=== PATIENT | male | born 1950 | race Caucasian/White ===

== ENCOUNTER 2016-07-12 12:54 | Inpatient (IN) | payer OTHER ==
--- NOTE | 2016-07-12 13:33 | EDM.PDOC ---
ED HISTORY OF PRESENT ILLNESS - General Chief Complaint: Respiratory Problem Stated Complaint: MEDICAL VIA TRI Time Seen by Provider: 07/12/16 13:33 Source: Reports: Patient History Limitations: Reports: No limitations - History of Present Illness INITIAL COMMENTS - FREE TEXT/NARRATIVE: pt developed marked tightness in chest. He is coughing some thick sputum. He does not have a fever. Timing/Duration: Reports: Hour(s):, Getting worse Severity: moderate Location, General: Reports: chest, other ( pt does not have ankle swelling. ) - Related Data Allergies/ADRs: Allergies Allergy/AdvReac Type Severity Reaction Status Date / Time No Known Allergies Allergy Verified 07/12/16 13:02 Home Meds: Home Meds Albuterol [Ventolin HFA] 2 puff INH ASDIRECTED PRN 07/12/16 [History] Cilostazol 50 mg PO DAILY 07/12/16 [History] Doxycycline Monohydrate 100 mg PO ASDIRECTED PRN 07/12/16 [History] Fenofibrate 1 tab PO DAILY 07/12/16 [History] Fluticasone/Salmeterol [Advair Diskus 500-50] 1 puff INH BID 07/12/16 [History] Ipratropium/Albuterol Sulfate [Iprat-Albut 0.5-3(2.5) mg/3 ml] 1 inh INH ASDIRECTED PRN 07/12/16 [History] Lisinopril 5 mg PO DAILY 07/12/16 [History] Metoprolol Succinate [Toprol XL 100mg] 100 mg PO DAILY 07/12/16 [History] Prednisone [IJD: Prednisone] 10 mg PO DAILY PRN 07/12/16 [History] atorvaSTATin [Lipitor] 1 tab PO DAILY 07/12/16 [History] Past Medical History Cardiovascular History: Reports: High cholesterol, Hypertension, Other (see below) Other Cardiovascular History: peripheral artery disease Respiratory History: Reports: COPD - Infectious Disease History Infectious Disease History: Reports: Measles Social & Family History - Tobacco Use Smoking Status *Q: Former Smoker Used Tobacco, but Quit: Yes Month Tobacco Last Used: 2014 - Caffeine Use Caffeine Use: Reports: Coffee - Alcohol Use Days Per Week of Alcohol Use: 3 Number of Drinks Per Day: 2 Total Drinks Per Week: 6 - Recreational Drug Use Recreational Drug Use: No ED ROS GENERAL - Review of Systems Review Of Systems: See Below Constitutional: Reports: no symptoms HEENT: Reports: No symptoms Respiratory: Reports: Shortness of Breath, Cough Cardiovascular: Reports: No symptoms Endocrine: Reports: no symptoms GI/Abdominal: Reports: No symptoms : Reports: no symptoms ED EXAM, GENERAL - Physical Exam Exam: See Below Free Text/Narrative:: pt arrived with marked sob he took 7 nebs last nite. He has progressively been more sob. He usually has some predisone he can use when he starts to get tight. He had ordered it but it was not available to him. Exam Limited By: No limitations General Appearance: alert, anxious, mild distress Ears: normal TMs Nose: normal inspection Throat/Mouth: Normal inspection Head: atraumatic Neck: normal inspection Respiratory/Chest: decreased breath sounds, wheezing Cardiovascular: regular rate, rhythm, tachycardia GI/Abdominal: soft, non tender Rectal (Males) Exam: Deferred Back Exam: normal inspection Extremities: other ( no edema. ) Neurological: alert, oriented, normal cognition Psychiatric: normal affect, anxious Course - Vital Signs Last Recorded V/S: Last Vital Signs Temp 36.1 C 07/12/16 13:05 Pulse 72 07/12/16 13:05 Resp 20 07/12/16 13:05 BP 157/78 H 07/12/16 13:05 Pulse Ox 88 L 07/12/16 13:05 - Orders/Labs/Meds Orders: Active Orders 24 hr Category Date Time Status RT Aerosol Therapy [RC] ASDIRECTED Care 07/12/16 13:42 Active Chest 1V Frontal [CR] Stat Exams 07/12/16 13:40 Taken UA W/MICROSCOPIC [URIN] Urgent Lab 07/12/16 12:57 Uncollected Labs: Laboratory Tests 07/12/16 07/12/16 07/12/16 Range/Units 13:05 13:09 13:09 WBC 7.2 (4.5-11.0) K/uL RBC 4.67 (4.30-5.90) M/uL Hgb 15.3 H (12.0-15.0) g/dL Hct 46.1 (40.0-54.0) % MCV 99 H (80-98) fL MCH 33 H (27-31) pg MCHC 33 (32-36) % Plt Count 128 L (150-400) K/uL Neut % (Auto) 54 (36-66) % Lymph % (Auto) 22 L (24-44) % [place] % (Auto) 14 H (2-6) % Eos % (Auto) 10 H (2-4) % Baso % (Auto) 1 (0-1) % Puncture Site ABG pH (7.350-7.450) ABG pCO2 (35.0-42.0) mmHg ABG pO2 (75.0-100.0) mmHg ABG HCO3 (22.0-26.0) mmol/L ABG Total CO2 (23.0-27.0) mmol/L ABG O2 Saturation (95.0-98.0) % ABG O2 Content (15.0-23.0) %vol ABG Base Excess mm/L ABG Hemoglobin (13.5-18.0) g/dL ABG Oxyhemoglobin % ABG Carboxyhemoglobin (0.0-1.6) % ABG Methemoglobin % Raffaele Test O2 Delivery Device Oxygen Flow Rate L Sodium (140-148) mmol/L Potassium (3.6-5.2) mmol/L Chloride (100-108) mmol/L Carbon Dioxide (21-32) mmol/L Anion Gap (5.0-14.0) mmol/L BUN (7-18) mg/dL Creatinine (0.8-1.3) mg/dL Est Cr Clr Drug Dosing mL/min Estimated GFR (MDRD) (>60) Glucose (74-106) mg/dL Calcium (8.5-10.1) mg/dL Total Bilirubin (0.2-1.0) mg/dL AST (15-37) U/L ALT (12-78) U/L Alkaline Phosphatase (46-116) U/L C-Reactive Protein 0.10 (0.0-0.3) mg/dL Qrr-Z-Jncnsycqehh Pept 263 H (5-125) pg/mL Total Protein (6.4-8.2) g/dL Albumin (3.4-5.0) g/dL Globulin (2.3-3.5) g/dL Albumin/Globulin Ratio (1.2-2.2) 07/12/16 07/12/16 Range/Units 13:09 13:52 WBC (4.5-11.0) K/uL RBC (4.30-5.90) M/uL Hgb (12.0-15.0) g/dL Hct (40.0-54.0) % MCV (80-98) fL MCH (27-31) pg MCHC (32-36) % Plt Count (150-400) K/uL Neut % (Auto) (36-66) % Lymph % (Auto) (24-44) % [place] % (Auto) (2-6) % Eos % (Auto) (2-4) % Baso % (Auto) (0-1) % Puncture Site Rt.radial ABG pH 7.350 (7.350-7.450) ABG pCO2 45.1 H (35.0-42.0) mmHg ABG pO2 138.0 H (75.0-100.0) mmHg ABG HCO3 24.3 (22.0-26.0) mmol/L ABG Total CO2 21.3 L (23.0-27.0) mmol/L ABG O2 Saturation 99.0 H (95.0-98.0) % ABG O2 Content 20.9 (15.0-23.0) %vol ABG Base Excess -1.1 mm/L ABG Hemoglobin 15.0 (13.5-18.0) g/dL ABG Oxyhemoglobin 97.7 % ABG Carboxyhemoglobin 0.8 (0.0-1.6) % ABG Methemoglobin 0.5 % Raffaele Test Passed O2 Delivery Device Nasal cannula Oxygen Flow Rate 2 L Sodium 139 L (140-148) mmol/L Potassium 4.2 (3.6-5.2) mmol/L Chloride 104 (100-108) mmol/L Carbon Dioxide 31 (21-32) mmol/L Anion Gap 8.2 (5.0-14.0) mmol/L BUN 11 (7-18) mg/dL Creatinine 0.9 (0.8-1.3) mg/dL Est Cr Clr Drug Dosing 80.22 mL/min Estimated GFR (MDRD) > 60 (>60) Glucose 93 (74-106) mg/dL Calcium 8.6 (8.5-10.1) mg/dL Total Bilirubin 0.9 (0.2-1.0) mg/dL AST 28 (15-37) U/L ALT 41 (12-78) U/L Alkaline Phosphatase 47 (46-116) U/L C-Reactive Protein (0.0-0.3) mg/dL Kuc-M-Bukjkorajbt Pept (5-125) pg/mL Total Protein 6.6 (6.4-8.2) g/dL Albumin 3.9 (3.4-5.0) g/dL Globulin 2.7 (2.3-3.5) g/dL Albumin/Globulin Ratio 1.4 (1.2-2.2) Meds: Medications Discontinued Medications Generic Name Dose Route Start Last Admin Trade Name Freq PRN Reason Stop Dose Admin Albuterol 2.5 mg 07/12/16 13:41 07/12/16 13:51 Proventil Neb Soln NEB 07/12/16 13:42 2.5 mg ONETIME ONE Administration - Re-Assessments/Exams Free Text/Narrative Re-Assessment/Exam: 07/12/16 14:44 chest xray reveals copd but no infiltrate. His bnp is not elevated, His wbc is normal. He was given a duol neb in the ambulance and got some relief. He was also given solumedrol 125 iv push. Departure - Departure Time of Disposition: 14:46 Disposition: Home, Self-Care 01 Condition: fair Clinical Impression: COPD exacerbation Forms: ED Department Discharge Care Plan Goals: admit to the hosp-- Dr chambers. - My Orders Last 24 Hours: My Active Orders 07/12/16 12:57 UA W/MICROSCOPIC [URIN] Urgent 07/12/16 13:40 Chest 1V Frontal [CR] Stat 07/12/16 13:42 RT Aerosol Therapy [RC] ASDIRECTED - Assessment/Plan Last 24 Hours: My Active Orders 07/12/16 12:57 UA W/MICROSCOPIC [URIN] Urgent 07/12/16 13:40 Chest 1V Frontal [CR] Stat 07/12/16 13:42 RT Aerosol Therapy [RC] ASDIRECTED
[2016-07-12] MEDS ORDERED: Albuterol 0.083% 2.5 MG/3 ML Neb Soln NEB ONE (13:41)
--- NOTE | 2016-07-12 15:19 | PCM.HP ---
H&P History of Present Illness - General Date of Service: 07/12/16 Admit Problem/Dx: Admission Diagnosis/Problem Admission Diagnosis/Problem Acute bronchitis Source of Information: Patient, Provider History Limitations: Reports: No limitations - History of Present Illness Initial Comments - Free Text/Narative: Lobo presents today with 2-3 days of progressive shortness of breath and wheezing. Cough is semi-frequent and occasionally productive of yellow sputum. He is now short of breath even at rest. He has been using his nebulizer machine approximately every 2 hours overnight rather than his usual every 4 hours. He is more winded with any activity and walking even 10 feet to the bathroom causes significant shortness of breath. He does not report any chest pain. He is not aware of any fevers or chills. Appetite and energy have both been decreased from baseline. No change in bowel or bladder function is reported. He has had similar episodes in the past, the most recent was about 2 and half months ago. He has not had steroids or antibiotics since that time. When the paramedics arrived for evaluation his oxygen saturations were in the low 80s. He received steroids and a nebulizer in the ambulance. Workup in the emergency room revealed hypoxia and wheezing. Labs and chest x- ray are essentially normal. He continues to require supplemental oxygen and will be admitted for management of bronchitis and a COPD exacerbation. - Related Data Allergies/Adverse Reactions: Allergies Allergy/AdvReac Type Severity Reaction Status Date / Time No Known Allergies Allergy Verified 07/12/16 13:02 Home Medications: Home Meds Albuterol [Ventolin HFA] 2 puff INH ASDIRECTED PRN 07/12/16 [History] Cilostazol 50 mg PO DAILY 07/12/16 [History] Doxycycline Monohydrate 100 mg PO ASDIRECTED PRN 07/12/16 [History] Fenofibrate 1 tab PO DAILY 07/12/16 [History] Fluticasone/Salmeterol [Advair Diskus 500-50] 1 puff INH BID 07/12/16 [History] Ipratropium/Albuterol Sulfate [Iprat-Albut 0.5-3(2.5) mg/3 ml] 1 inh INH ASDIRECTED PRN 07/12/16 [History] Lisinopril 5 mg PO DAILY 07/12/16 [History] Metoprolol Succinate [Toprol XL 100mg] 100 mg PO DAILY 07/12/16 [History] Prednisone [IJD: Prednisone] 10 mg PO DAILY PRN 07/12/16 [History] atorvaSTATin [Lipitor] 1 tab PO DAILY 07/12/16 [History] Past Medical History Cardiovascular History: Reports: High cholesterol, Hypertension, Other (see below) Other Cardiovascular History: peripheral artery disease Respiratory History: Reports: COPD - Infectious Disease History Infectious Disease History: Reports: Measles Social & Family History - Family History Respiratory: Reports: COPD - Tobacco Use Smoking Status *Q: Former Smoker Used Tobacco, but Quit: Yes Month Tobacco Last Used: 2014 - Caffeine Use Caffeine Use: Reports: Coffee - Alcohol Use Days Per Week of Alcohol Use: 3 Number of Drinks Per Day: 2 Total Drinks Per Week: 6 - Recreational Drug Use Recreational Drug Use: No H&P Review of Systems - Review of Systems: Review Of Systems: See Below Free Text/Narrative: A complete 12 point review of systems was obtained. Pertinent positives and negatives are noted in the history of present illness. All other systems were reviewed and were negative except as noted. Exam - Exam Exam: See Below - Vital Signs Vital Signs: Last Vital Signs Temp 36.1 C 07/12/16 13:05 Pulse 67 07/12/16 14:31 Resp 18 07/12/16 14:31 BP 148/77 H 07/12/16 14:31 Pulse Ox 93 L 07/12/16 14:31 Weight: 95.254 kg - Exam Quality Assessment: supplemental oxygen. No: urinary catheter General: alert, oriented, cooperative, mild distress HEENT: Conjunctiva clear, Mucosa moist & pink. No: Scleral icterus Neck: supple, trachea midline. No: lymphadenopathy Lungs: Normal respiratory effort, Wheezing (diffuse exp wheezing with moderate air flow impairment ). No: Rales Cardiovascular: regular rate, regular rhythm. No: tachycardia, systolic murmur Abdomen: normal bowel sounds, soft, other (obese). No: distention, tenderness Back Exam: normal inspection, full range of motion Extremities: normal inspection, normal pulses. No: edema Peripheral Pulses: 2+: dorsalis pedis (L), dorsalis pedis (R) Skin: warm, dry, intact Neuro Extensive - Mental Status: alert, oriented x3, nl response to commands Neuro Extensive - Motor, Sensory, Reflexes: CN II-XII intact. No: dysarthria, abnormal motor, tremor Psychiatric: alert, normal affect - Patient Data Lab Results last 24 hrs: Laboratory Results - last 24 hr 07/12/16 07/12/16 07/12/16 Range/Units 13:05 13:09 13:09 WBC 7.2 (4.5-11.0) K/uL RBC 4.67 (4.30-5.90) M/uL Hgb 15.3 H (12.0-15.0) g/dL Hct 46.1 (40.0-54.0) % MCV 99 H (80-98) fL MCH 33 H (27-31) pg MCHC 33 (32-36) % Plt Count 128 L (150-400) K/uL Neut % (Auto) 54 (36-66) % Lymph % (Auto) 22 L (24-44) % [place] % (Auto) 14 H (2-6) % Eos % (Auto) 10 H (2-4) % Baso % (Auto) 1 (0-1) % Puncture Site ABG pH (7.350-7.450) ABG pCO2 (35.0-42.0) mmHg ABG pO2 (75.0-100.0) mmHg ABG HCO3 (22.0-26.0) mmol/L ABG Total CO2 (23.0-27.0) mmol/L ABG O2 Saturation (95.0-98.0) % ABG O2 Content (15.0-23.0) %vol ABG Base Excess mm/L ABG Hemoglobin (13.5-18.0) g/dL ABG Oxyhemoglobin % ABG Carboxyhemoglobin (0.0-1.6) % ABG Methemoglobin % Raffaele Test O2 Delivery Device Oxygen Flow Rate L Sodium (140-148) mmol/L Potassium (3.6-5.2) mmol/L Chloride (100-108) mmol/L Carbon Dioxide (21-32) mmol/L Anion Gap (5.0-14.0) mmol/L BUN (7-18) mg/dL Creatinine (0.8-1.3) mg/dL Est Cr Clr Drug Dosing mL/min Estimated GFR (MDRD) (>60) Glucose (74-106) mg/dL Calcium (8.5-10.1) mg/dL Total Bilirubin (0.2-1.0) mg/dL AST (15-37) U/L ALT (12-78) U/L Alkaline Phosphatase (46-116) U/L C-Reactive Protein 0.10 (0.0-0.3) mg/dL [id number]-[id number]-Tpkxwhswvlz Pept 263 H (5-125) pg/mL Total Protein (6.4-8.2) g/dL Albumin (3.4-5.0) g/dL Globulin (2.3-3.5) g/dL Albumin/Globulin Ratio (1.2-2.2) Urine Color Urine Appearance Urine pH (4.5-8.0) Ur Specific [place] (1.008-1.030) Urine Protein (NEGATIVE) mg/dL Urine Glucose (UA) (NEGATIVE) mg/dL Urine Ketones (NEGATIVE) mg/dL Urine Occult Blood (NEGATIVE) Urine Nitrite (NEGAITVE) Urine Bilirubin (NEGATIVE) Urine Urobilinogen (NORMAL) mg/dL Ur Leukocyte Esterase (NEGATIVE) Urine RBC (0-5) Urine WBC (0-5) Ur Epithelial Cells Amorphous Sediment Urine Bacteria Urine Mucus 07/12/16 07/12/16 07/12/16 Range/Units 13:09 13:52 15:01 WBC (4.5-11.0) K/uL RBC (4.30-5.90) M/uL Hgb (12.0-15.0) g/dL Hct (40.0-54.0) % MCV (80-98) fL MCH (27-31) pg MCHC (32-36) % Plt Count (150-400) K/uL Neut % (Auto) (36-66) % Lymph % (Auto) (24-44) % [place] % (Auto) (2-6) % Eos % (Auto) (2-4) % Baso % (Auto) (0-1) % Puncture Site Rt.radial ABG pH 7.350 (7.350-7.450) ABG pCO2 45.1 H (35.0-42.0) mmHg ABG pO2 138.0 H (75.0-100.0) mmHg ABG HCO3 24.3 (22.0-26.0) mmol/L ABG Total CO2 21.3 L (23.0-27.0) mmol/L ABG O2 Saturation 99.0 H (95.0-98.0) % ABG O2 Content 20.9 (15.0-23.0) %vol ABG Base Excess -1.1 mm/L ABG Hemoglobin 15.0 (13.5-18.0) g/dL ABG Oxyhemoglobin 97.7 % ABG Carboxyhemoglobin 0.8 (0.0-1.6) % ABG Methemoglobin 0.5 % Raffaele Test Passed O2 Delivery Device Nasal cannula Oxygen Flow Rate 2 L Sodium 139 L (140-148) mmol/L Potassium 4.2 (3.6-5.2) mmol/L Chloride 104 (100-108) mmol/L Carbon Dioxide 31 (21-32) mmol/L Anion Gap 8.2 (5.0-14.0) mmol/L BUN 11 (7-18) mg/dL Creatinine 0.9 (0.8-1.3) mg/dL Est Cr Clr Drug Dosing 80.22 mL/min Estimated GFR (MDRD) > 60 (>60) Glucose 93 (74-106) mg/dL Calcium 8.6 (8.5-10.1) mg/dL Total Bilirubin 0.9 (0.2-1.0) mg/dL AST 28 (15-37) U/L ALT 41 (12-78) U/L Alkaline Phosphatase 47 (46-116) U/L C-Reactive Protein (0.0-0.3) mg/dL Wnw-Y-Msdhttsfkzt Pept (5-125) pg/mL Total Protein 6.6 (6.4-8.2) g/dL Albumin 3.9 (3.4-5.0) g/dL Globulin 2.7 (2.3-3.5) g/dL Albumin/Globulin Ratio 1.4 (1.2-2.2) Urine Color Yellow Urine Appearance Clear Urine pH 6.0 (4.5-8.0) Ur Specific [place] 1.015 (1.008-1.030) Urine Protein Negative (NEGATIVE) mg/dL Urine Glucose (UA) Normal (NEGATIVE) mg/dL Urine Ketones Negative (NEGATIVE) mg/dL Urine Occult Blood Negative (NEGATIVE) Urine Nitrite Negative (NEGAITVE) Urine Bilirubin Negative (NEGATIVE) Urine Urobilinogen Normal (NORMAL) mg/dL Ur Leukocyte Esterase Negative (NEGATIVE) Urine RBC Not seen (0-5) Urine WBC 0-5 (0-5) Ur Epithelial Cells Rare Amorphous Sediment Not seen Urine Bacteria Rare Urine Mucus Not seen Result Diagrams: 07/12/16 13:09 07/12/16 13:09 Imaging Impressions last 24 hrs: CXR - images personally reviewed - clear with no mass, chf, infiltrate, effusion *Q Meaningful Use (ADM) - VTE *Q VTE Criteria *Q: - Stroke *Q Stroke Criteria *Q: - AMI *Q AMI Criteria *Q: - Problem List (1) Acute bronchitis SNOMED Code(s): 44768042 ICD Code: J20.9 - ACUTE BRONCHITIS, UNSPECIFIED Status: Acute Current Visit: Yes Qualifiers: Bronchitis organism: unspecified organism Qualified Code(s): J20.9 - Acute bronchitis, unspecified (2) COPD exacerbation SNOMED Code(s): 759967331, 931839146 ICD Code: J44.1 - CHRONIC OBSTRUCTIVE PULMONARY DISEASE W (ACUTE) EXACERBATION Status: Acute Current Visit: Yes Problem List Initiated/Reviewed/Updated: Yes Orders Last 24hrs: Active Orders 24 hr Category Date Time Status Patient Status Manage Transfer [TRANSFER] Routine ADT 07/12/16 15:09 Ordered RT Aerosol Therapy [RC] ASDIRECTED Care 07/12/16 13:42 Active RT Aerosol Therapy [RC] ASDIRECTED Care 07/12/16 15:08 Active Chest 1V Frontal [CR] Stat Exams 07/12/16 13:40 Taken Albuterol [Proventil Neb Soln] Med 07/12/16 15:07 Active 2.5 mg NEB Q2H PRN Azithromycin [Zithromax] 500 mg Med 07/12/16 15:30 Active Sodium Chloride 0.9% [Normal Saline] 250 ml IV Q24H [id number] [Rocephin] 2 gm Med 07/12/16 17:00 Active Sodium Chloride 0.9% [Normal Saline] 50 ml IV Q24H Resuscitation Status Routine Resus Stat 07/12/16 15:11 Ordered Medication Orders Albuterol (Proventil Neb Soln) 2.5 mg NEB Q2H PRN PRN Reason: Shortness of Breath Azithromycin 500 mg/ Sodium (Chloride) 250 mls @ 250 mls/hr IV Q24H MIRIAN Ceftriaxone Sodium 2 gm/ (Sodium Chloride) 50 mls @ 100 mls/hr IV Q24H [facility] Assessment/Plan Comment:: Assessment and plan - Acute bronchitis with acute exacerbation of COPD - chest x-ray does not reveal pneumonia. Patient has diffuse wheezing and hypoxia consistent with COPD exacerbation. Bronchitis is suspected at this time and antibiotics will be initiated. There is no evidence for sepsis. He has not had antibiotics in nearly 3 months. -Ceftriaxone and azithromycin -Second dose of Solu-Medrol tonight and then start prednisone in the morning -Scheduled and as needed nebulizers -Supplemental oxygen -Continue Advair or equivalent -Sputum culture if able -Cough suppression Peripheral arterial disease - no active symptoms at this time beyond his baseline. He does have a baseline of claudication after short distance of ambulation. He has had previous surgical intervention for his peripheral arterial disease. -Continue home medications Hypertension - blood pressure stable and usual medications will be continued. Maintenance issues - - DVT prophylaxis - mechanical - GI prophylaxis - not indicated - Nutrition - regular diet - Alanis catheter - not indicated CODE STATUS - full treatment without intubation and without ACLS Admission justification - This patient will be admitted for inpatient services and is medically appropriate meeting medical necessity for inpatient admission as outlined in my documentation. I reasonably expect the patient will require inpatient services that span a period time over 2 midnights. I reasonably expect this patient to be discharged or transferred within 96 hours [facility]. Disposition - anticipate discharge to home after the hospital stay Toribio Grove M.D.
[2016-07-12] MEDS: Azithromycin 500 MG in Sodium Chloride 0.9% 250 ML IV SCH (15:23)
[2016-07-12] MEDS ORDERED: Acetaminophen 325 MG Tab PO PRN (16:22)
[2016-07-12] MEDS ORDERED: Ibuprofen 600 MG Tab PO PRN (16:22)
[2016-07-12] MEDS ORDERED: Polyethylene Glycol 3350 Powder 17 GM Packet PO PRN (16:22)
[2016-07-12] MEDS ORDERED: Ondansetron 4 MG Tab.DIS PO PRN (16:22)
[2016-07-12] MEDS ORDERED: Ondansetron 4 MG/2 ML SDV IV PRN (16:22)
[2016-07-12] MEDS: Albuterol/Ipratropium 3.0-0.5 MG/3 ML Neb Soln NEB SCH ×3 (16:38→22:00)
[2016-07-12] MEDS: cefTRIAXone 2 GM in Sodium Chloride 0.9% 50 ML IV SCH (16:38)
[2016-07-12] MEDS ORDERED: Codeine/guaiFENesin 100mg-10 MG/5 ML Syrup 10 ML Cup PO PRN (18:38)
[2016-07-12] MEDS ORDERED: Benzonatate 100 MG Cap PO PRN (18:38)
[2016-07-12] MEDS ORDERED: Formoterol/Mometasone 200-5 MCG 8.8 GM Inhaler IH SCH (21:00)
[2016-07-12] MEDS ORDERED: methylPREDNISolone Sodium Succinate 125 MG/2 ML SDV IVPUSH ONE (22:00)
[2016-07-12] MEDS: Albuterol 0.083% 2.5 MG/3 ML Neb Soln NEB PRN (22:51)
[2016-07-13] MEDS: Sodium Chloride 0.9% 1,000 ML IV SCH ×2 (02:52→14:30)
[2016-07-13] MEDS: Albuterol 0.083% 2.5 MG/3 ML Neb Soln NEB PRN ×4 (03:04→19:14)
[2016-07-13] MEDS: Albuterol/Ipratropium 3.0-0.5 MG/3 ML Neb Soln NEB SCH ×5 (06:54→22:03)
[2016-07-13] MEDS: Formoterol/Mometasone 200-5 MCG 8.8 GM Inhaler IH SCH ×2 (07:25→20:53)
[2016-07-13] MEDS ORDERED: predniSONE 20 MG Tab PO SCH (07:30)
[2016-07-13] MEDS ORDERED: CILOSTAZOL 50 MG PO SCH (09:00)
[2016-07-13] MEDS ORDERED: FENOFIBRATE PO SCH (09:00)
[2016-07-13] MEDS: predniSONE 20 MG Tab PO SCH ×2 (09:24→16:27)
[2016-07-13] MEDS: atorvaSTATin 20 MG Tab PO SCH (09:24)
[2016-07-13] MEDS: Metoprolol Succinate 50 MG Tab.ER PO SCH (09:25)
[2016-07-13] MEDS: Lisinopril 5 MG Tab PO SCH (09:25)
--- NOTE | 2016-07-13 10:36 | CR ---
Chest 1V Frontal HISTORY: Shortness of breath FINDINGS: Cardiac size and pulmonary vessels are normal. The lungs are clear. IMPRESSION: Negative AP chest.
[2016-07-13] MEDS: Azithromycin 500 MG in Sodium Chloride 0.9% 250 ML IV SCH (15:05)
--- NOTE | 2016-07-13 15:09 | PCM.PN ---
- General Info Date of Service: 07/13/16 Functional Status: Reports: pain controlled, tolerating diet, ambulating, urinating - Review of Systems General: Denies: Fever, Weakness, Chills Pulmonary: Reports: shortness of breath, cough, wheezing. Denies: pleuritic chest pain, sputum, hemoptysis Cardiovascular: Reports: Dyspnea on Exertion. Denies: Chest Pain, Palpitations , Orthopnea, PND, Edema, Lightheadedness Gastrointestinal: Reports: No symptoms Systems Review Comment:: This patient was admitted yesterday with COPD exacerbation likely secondary to bronchitis. Since admission he is noted improvement in his cough as well as shortness of breath. Vital signs have remained stable and he has been afebrile. - Patient Data Vitals - most recent: Last Vital Signs Temp 97.8 F 07/13/16 11:00 Pulse 91 07/13/16 11:00 Resp 18 07/13/16 11:00 BP 149/88 H 07/13/16 11:00 Pulse Ox 93 L 07/13/16 11:00 Weight - most recent: 246 lb 15.989 oz I&O - last 24 hours: Intake & Output 07/13/16 07/13/16 07/13/16 06:59 14:59 22:59 Intake Total 1259 2130 997 Output Total 900 800 Balance 359 1330 997 Lab Results last 24 hrs: Laboratory Results - last 24 hr 07/13/16 07/13/16 Range/Units 06:16 06:16 WBC 8.4 (4.5-11.0) K/uL RBC 4.25 L (4.30-5.90) M/uL Hgb 13.9 (12.0-15.0) g/dL Hct 40.9 (40.0-54.0) % MCV 96 (80-98) fL MCH 33 H (27-31) pg MCHC 34 (32-36) % Plt Count 120 L (150-400) K/uL Sodium 138 L (140-148) mmol/L Potassium 3.7 (3.6-5.2) mmol/L Chloride 105 (100-108) mmol/L Carbon Dioxide 26 (21-32) mmol/L Anion Gap 10.7 (5.0-14.0) mmol/L BUN 12 (7-18) mg/dL Creatinine 0.9 (0.8-1.3) mg/dL Est Cr Clr Drug Dosing 81.57 mL/min Estimated GFR (MDRD) > 60 (>60) Glucose 156 H (74-106) mg/dL Calcium 8.1 L (8.5-10.1) mg/dL Diomedes Results last 24 hrs: Microbiology 07/12/16 18:52 Gram Stain - Final Sputum - Expectorated Med Orders - Current: Current Medications Acetaminophen (Tylenol) 650 mg PO Q4H PRN PRN Reason: Pain (Mild 1-3)/fever Albuterol (Proventil Neb Soln) 2.5 mg NEB Q2H PRN PRN Reason: Shortness of Breath Last Admin: 07/13/16 13:02 Dose: 2.5 mg Albuterol/Ipratropium (Duoneb 3.0-0.5 Mg/3 Ml) 3 ml NEB QIDRT [facility] Last Admin: 07/13/16 14:35 Dose: Not Given Atorvastatin Calcium (Lipitor) 80 mg PO DAILY [facility] Last Admin: 07/13/16 09:24 Dose: 80 mg Benzonatate (Tessalon Perles) 200 mg PO TID PRN PRN Reason: Cough Guaifenesin/Codeine Phosphate (Robitussin Ac) 10 ml PO Q4H PRN PRN Reason: Cough Azithromycin 500 mg/ Sodium (Chloride) 250 mls @ 250 mls/hr IV Q24H [facility] Last Admin: 07/13/16 15:05 Dose: 250 mls/hr Ceftriaxone Sodium 2 gm/ (Sodium Chloride) 50 mls @ 100 mls/hr IV Q24H [facility] Last Admin: 07/12/16 16:38 Dose: 100 mls/hr Ibuprofen (Motrin) 600 mg PO Q6H PRN PRN Reason: Pain/Fever Lisinopril (Prinivil) 5 mg PO DAILY [facility] Last Admin: 07/13/16 09:25 Dose: 5 mg Metoprolol Succinate (Toprol Xl) 100 mg PO DAILY [facility] Last Admin: 07/13/16 09:25 Dose: 100 mg Mometasone Furoate/Formoterol Fumar (Dulera 200-5 Mcg) 2 puff IH BIDRT [facility] Last Admin: 07/13/16 07:25 Dose: 2 puff Non-Formulary Medication (Fenofibrate [Fenofibrate]) 1 tab PO DAILY [facility] Ondansetron HCl (Zofran Odt) 4 mg PO Q6H PRN PRN Reason: Nausea able to take PO Ondansetron HCl (Zofran) 4 mg IV Q6H PRN PRN Reason: Nausea/Vomiting Polyethylene Glycol (Miralax) 17 gm PO DAILY PRN PRN Reason: Constipation Prednisone (Prednisone) 20 mg PO BIDMEALS [facility] Last Admin: 07/13/16 09:24 Dose: 20 mg Senna/Docusate Sodium (Senna Plus) 1 tab PO BID PRN PRN Reason: Constipation Discontinued Medications Albuterol (Proventil Neb Soln) 2.5 mg NEB ONETIME ONE Stop: 07/12/16 13:42 Last Admin: 07/12/16 13:51 Dose: 2.5 mg Cilostazol (Pletal) 50 mg PO DAILY [facility] Sodium Chloride (Normal Saline) 1,000 mls @ 100 mls/hr IV ASDIRECTED [facility] Last Admin: 07/13/16 14:30 Dose: 100 mls/hr Methylprednisolone Sodium Succinate (Solu-Medrol) 62.5 mg IVPUSH ONETIME ONE Stop: 07/12/16 22:01 Last Admin: 07/12/16 21:54 Dose: 62.5 mg Mometasone Furoate/Formoterol Fumar (Dulera 200-5 Mcg) 2 puff IH BIDRT [facility] Last Admin: 07/12/16 22:49 Dose: 2 puff Prednisone (Prednisone) 20 mg PO BIDAC [facility] - Exam Quality Assessment: DVT prophylaxis General: alert, oriented, cooperative, mild distress Lungs: Decreased breath sounds, Wheezing. No: Crackles, Rales, Rhonchi, Rub, Stridor Cardiovascular: Regular Rate, Regular Rhythm, No Murmurs Abdomen: bowel sounds present, soft, no tenderness, no distension Extremities: no edema Skin: warm, dry, intact - Problem List Review Problem List Initiated/Reviewed/Updated: Yes - My Orders Last 24 Hours: My Active Orders 07/13/16 13:47 Convert IV to Saline Lock [OM.PC] Routine 07/14/16 05:00 BASIC METABOLIC PANEL,BMP [CHEM] Timed CBC WITH AUTO DIFF [HEME] Timed - Plan Plan:: Assessment and plan - Acute bronchitis with acute exacerbation of COPD - chest x-ray does not reveal pneumonia. Patient has diffuse wheezing and hypoxia consistent with COPD exacerbation. Bronchitis is suspected at this time and antibiotics will be initiated. There is no evidence for sepsis. Symptomatically improved since admission with less shortness of breath and cough. -Ceftriaxone and azithromycin -Continue prednisone -Scheduled and as needed nebulizers -Supplemental oxygen -Continue Advair or equivalent -Sputum culture if able -Cough suppression Peripheral arterial disease - no active symptoms at this time beyond his baseline. He does have a baseline of claudication after short distance of ambulation. He has had previous surgical intervention for his peripheral arterial disease. -Continue home medications Hypertension - blood pressure stable and usual medications will be continued. Maintenance issues - - DVT prophylaxis - mechanical - GI prophylaxis - not indicated - Nutrition - regular diet - Alanis catheter - not indicated CODE STATUS - full treatment without intubation and without ACLS Admission justification - This patient will be admitted for inpatient services and is medically appropriate meeting medical necessity for inpatient admission as outlined in my documentation. I reasonably expect the patient will require inpatient services that span a period time over 2 midnights. I reasonably expect this patient to be discharged or transferred within 96 hours after admission to the [facility]. Disposition - anticipate discharge to home after the hospital stay
[2016-07-13] MEDS: Fenofibrate 54 MG Tab PO SCH (16:27)
[2016-07-13] MEDS: cefTRIAXone 2 GM in Sodium Chloride 0.9% 50 ML IV SCH (16:30)
[2016-07-14] MEDS: Albuterol 0.083% 2.5 MG/3 ML Neb Soln NEB PRN ×2 (01:31→04:46)
[2016-07-14] MEDS: Formoterol/Mometasone 200-5 MCG 8.8 GM Inhaler IH SCH (07:23)
[2016-07-14] MEDS: Albuterol/Ipratropium 3.0-0.5 MG/3 ML Neb Soln NEB SCH ×2 (07:23→10:48)
[2016-07-14] MEDS: predniSONE 20 MG Tab PO SCH (07:34)
[2016-07-14] MEDS: Fenofibrate 54 MG Tab PO SCH (08:44)
[2016-07-14] MEDS: atorvaSTATin 20 MG Tab PO SCH (08:44)
[2016-07-14] MEDS: Lisinopril 5 MG Tab PO SCH (08:44)
[2016-07-14] MEDS: Metoprolol Succinate 50 MG Tab.ER PO SCH (08:46)
[2016-07-14 08:47] VITALS: BP 147/77
--- NOTE | 2016-07-14 11:47 | PCM.DCSUM1 ---
Discharge Summary - Hospital Course Brief History: This patient is a 66-year-old gentleman who was admitted with hypoxia and shortness of breath secondary to a COPD exacerbation with underlying bronchitis. - Discharge Data Discharge Date: 07/14/16 Discharge Disposition: Home, Self-Care 01 Condition: Fair - Discharge Diagnosis/Problem(s) (1) COPD exacerbation SNOMED Code(s): 171207883, 819907059 ICD Code: J44.1 - CHRONIC OBSTRUCTIVE PULMONARY DISEASE W (ACUTE) EXACERBATION Status: Acute Current Visit: Yes (2) Acute bronchitis SNOMED Code(s): 03518052 ICD Code: J20.9 - ACUTE BRONCHITIS, UNSPECIFIED Status: Acute Current Visit: Yes Qualifiers: Bronchitis organism: unspecified organism Qualified Code(s): J20.9 - Acute bronchitis, unspecified (3) Hypertension SNOMED Code(s): 93538815 ICD Code: I10 - ESSENTIAL (PRIMARY) HYPERTENSION Status: Chronic Current Visit: No - Patient Summary/Data Hospital Course: This patient is a 66-year-old gentleman with a known history of COPD. Prior to admission he developed increased shortness of breath with associated cough and presented to the emergency department for further evaluation. Chest x-ray showed no evidence of infiltrate and his white blood cell count was within normal range. On initial assessment was noted to be hypoxic which improved with use of supplemental oxygen. On exam he had bilateral expiratory wheezes. He was admitted to the hospital and placed on IV antibiotic therapy for management of bronchitis with azithromycin and Rocephin. He was also initially treated with IV Solu-Medrol and IV fluids. During hospital stay was transitioned to oral prednisone and intravenous fluids were discontinued. With this management he improved over the next few days of hospitalization and was on room air prior to discharge with adequate saturations. Activity will be as tolerated and he will resume his usual diet. He will be discharged to home on additional 3 days of oral prednisone an additional 4 days of oral antibiotic therapy. [place] he has a followup appointment with his primary care provider in the [facility] in 8 days. Records will be copied including radiologic studies for him to bring to that appointment. - Patient Instructions Diet: Usual Diet as Tolerated Activity: As Tolerated Other/Special Instructions: Patient already has followup appointment with primary care provider on July 22. Please copy records including radiologic studies for the patient to take with him for that appointment. - Discharge Plan Prescriptions/Med Rec: Cefdinir [Omnicef] 300 mg PO BID #6 cap Prednisone [IJD: predniSONE] 40 mg PO DAILY #6 tablet Home Medications: Home Meds Albuterol [Ventolin HFA] 2 puff INH ASDIRECTED PRN 07/12/16 [History] Fenofibrate 1 tab PO DAILY 07/12/16 [History] Fluticasone/Salmeterol [Advair Diskus 500-50] 1 puff INH BID 07/12/16 [History] Ipratropium/Albuterol Sulfate [Iprat-Albut 0.5-3(2.5) mg/3 ml] 1 inh INH ASDIRECTED PRN 07/12/16 [History] Lisinopril 5 mg PO DAILY 07/12/16 [History] Metoprolol Succinate [Toprol XL 100mg] 100 mg PO DAILY 07/12/16 [History] atorvaSTATin [Lipitor] 1 tab PO DAILY 07/12/16 [History] Cefdinir [Omnicef] 300 mg PO BID #6 cap 07/14/16 [Rx] Prednisone [IJD: predniSONE] 40 mg PO DAILY #6 tablet 07/14/16 [Rx] Referrals: PCP,None [Primary Care Provider] - - Patient Data Vitals - Most Recent: Last Vital Signs Temp 96.4 F 07/14/16 07:37 Pulse 83 07/14/16 08:49 Resp 16 07/14/16 07:37 BP 147/77 H 07/14/16 08:49 Pulse Ox 95 07/14/16 08:49 Weight - Most Recent: 246 lb 15.989 oz I&O - Last 24 hours: Intake & Output 07/13/16 07/14/16 07/14/16 22:59 06:59 14:59 Intake Total 2097 300 1120 Balance 2097 300 1120 Lab Results - Last 24 hrs: Laboratory Results - last 24 hr 07/14/16 07/14/16 Range/Units 04:45 04:45 WBC 10.8 (4.5-11.0) K/uL RBC 4.27 L (4.30-5.90) M/uL Hgb 13.9 (12.0-15.0) g/dL Hct 41.9 (40.0-54.0) % MCV 98 (80-98) fL MCH 33 H (27-31) pg MCHC 33 (32-36) % Plt Count 119 L (150-400) K/uL Neut % (Auto) 80 H (36-66) % Lymph % (Auto) 9 L (24-44) % [place] % (Auto) 11 H (2-6) % Eos % (Auto) 0 L (2-4) % Baso % (Auto) 0 (0-1) % Sodium 144 (140-148) mmol/L Potassium 4.1 (3.6-5.2) mmol/L Chloride 109 H (100-108) mmol/L Carbon Dioxide 31 (21-32) mmol/L Anion Gap 8.1 (5.0-14.0) mmol/L BUN 16 (7-18) mg/dL Creatinine 0.8 (0.8-1.3) mg/dL Est Cr Clr Drug Dosing 91.78 mL/min Estimated GFR (MDRD) > 60 (>60) Glucose 119 H (74-106) mg/dL Calcium 8.2 L (8.5-10.1) mg/dL JUSTIN Results - Last 24 hrs: Microbiology 07/12/16 18:52 Gram Stain - Final Sputum - Expectorated Respiratory Culture - Preliminary [facility] [place] 1 DAY Med Orders - Current: Current Medications Acetaminophen (Tylenol) 650 mg PO Q4H PRN PRN Reason: Pain (Mild 1-3)/fever Albuterol (Proventil Neb Soln) 2.5 mg NEB Q2H PRN PRN Reason: Shortness of Breath Last Admin: 07/14/16 04:46 Dose: 2.5 mg Albuterol/Ipratropium (Duoneb 3.0-0.5 Mg/3 Ml) 3 ml NEB QIDRT [facility] Last Admin: 07/14/16 10:48 Dose: 3 ml Atorvastatin Calcium (Lipitor) 80 mg PO DAILY [facility] Last Admin: 07/14/16 08:44 Dose: 80 mg Benzonatate (Tessalon Perles) 200 mg PO TID PRN PRN Reason: Cough Fenofibrate (Fenofibrate) 162 mg PO DAILY [facility] Last Admin: 07/14/16 08:44 Dose: 162 mg Guaifenesin/Codeine Phosphate (Robitussin Ac) 10 ml PO Q4H PRN PRN Reason: Cough Azithromycin 500 mg/ Sodium (Chloride) 250 mls @ 250 mls/hr IV Q24H [facility] Last Admin: 07/13/16 15:05 Dose: 250 mls/hr Ceftriaxone Sodium 2 gm/ (Sodium Chloride) 50 mls @ 100 mls/hr IV Q24H [facility] Last Admin: 07/13/16 16:30 Dose: 100 mls/hr Ibuprofen (Motrin) 600 mg PO Q6H PRN PRN Reason: Pain/Fever Lisinopril (Prinivil) 5 mg PO DAILY [facility] Last Admin: 07/14/16 08:44 Dose: 5 mg Metoprolol Succinate (Toprol Xl) 100 mg PO DAILY [facility] Last Admin: 07/14/16 08:46 Dose: 100 mg Mometasone Furoate/Formoterol Fumar (Dulera 200-5 Mcg) 2 puff IH BIDRT [facility] Last Admin: 07/14/16 07:23 Dose: 2 puff Ondansetron HCl (Zofran Odt) 4 mg PO Q6H PRN PRN Reason: Nausea able to take PO Ondansetron HCl (Zofran) 4 mg IV Q6H PRN PRN Reason: Nausea/Vomiting Polyethylene Glycol (Miralax) 17 gm PO DAILY PRN PRN Reason: Constipation Prednisone (Prednisone) 20 mg PO BIDMEALS [facility] Last Admin: 07/14/16 07:34 Dose: 20 mg Senna/Docusate Sodium (Senna Plus) 1 tab PO BID PRN PRN Reason: Constipation Discontinued Medications Albuterol (Proventil Neb Soln) 2.5 mg NEB ONETIME ONE Stop: 07/12/16 13:42 Last Admin: 07/12/16 13:51 Dose: 2.5 mg Cilostazol (Pletal) 50 mg PO DAILY [facility] Sodium Chloride (Normal Saline) 1,000 mls @ 100 mls/hr IV ASDIRECTED [facility] Last Admin: 07/13/16 14:30 Dose: 100 mls/hr Methylprednisolone Sodium Succinate (Solu-Medrol) 62.5 mg IVPUSH ONETIME ONE Stop: 07/12/16 22:01 Last Admin: 07/12/16 21:54 Dose: 62.5 mg Mometasone Furoate/Formoterol Fumar (Dulera 200-5 Mcg) 2 puff IH BIDRT [facility] Last Admin: 07/12/16 22:49 Dose: 2 puff Prednisone (Prednisone) 20 mg PO BIDAC [facility]IRIAN *Q Meaningful Use (DIS) - VTE *Q VTE Criteria *Q: - Stroke *Q Stroke Criteria *Q: - AMI *Q AMI Criteria *Q:
== END 2016-07-14 13:35 | disposition home or self-care (01) | DRG 192 ==
LOC: JP.ED 12:54 → JP.MS 15:09
PROVIDERS: ADMIT Internal Medicine; ATTEND Hospitalist
DX: J44.0 Chronic obstructive pulmonary disease with (acute) lower respiratory infection (principal); J20.9 Acute bronchitis, unspecified; J44.1 Chronic obstructive pulmonary disease with (acute) exacerbation; R09.02 Hypoxemia; I10 Essential (primary) hypertension; E78.00 Pure hypercholesterolemia, unspecified; Z87.891 Personal history of nicotine dependence; I73.9 Peripheral vascular disease, unspecified; Z79.52 Long term (current) use of systemic steroids
CPT/HCPCS: 36415; 36600; 71010; 71010-26; 80048; 80053; 81001; 82803; 83880; 85025; 85027; 86140; 87070; 87205; 94640-76; 94664; 96365; 96367; 99284-25; A9270-GY; J0456; J0696; J2930; J7040; J7050; J7620